=== PATIENT | male | born 1995 | race Caucasian/White ===

== ENCOUNTER 2021-05-20 17:24 | Emergency (ER) | payer SELFPAY ==
[~2021-05-20] VITALS: Ht 162.6 cm; Wt 95.1 kg
[2021-05-20 17:25] VITALS: BP 184/94
== END 2021-05-20 17:37 | disposition left against medical advice (07) ==
LOC: M ED 17:24
DX: Z53.21 Procedure and treatment not carried out due to patient leaving prior to being seen by health care provider (principal)